=== PATIENT | female | born 1955 ===

== ENCOUNTER 2016-10-08 20:03 | Emergency (ER) | payer OTHER ==
[2016-10-08 20:46] VITALS: PULSE 62; RESP 20; O2SAT 100
[2016-10-08 21:41] VITALS: BP 136/86; TEMP 98
--- NOTE | 2016-10-08 21:43 | C.PDOC ---
History Of Present Illness 60 year old patient presents to the ED complaining of a productive cough and yellow phlegm for the past 2 days. Patient was seen at [facility] today , but did not have her cough evaluated since it was not bothering her at that time. Patient is homeless. Patient denies any fever, shortness of breath or chest pain. Time Seen by Provider: 10/08/16 21:02 Chief Complaint (Nursing): Cough, Cold, Congestion History Per: Patient History/Exam Limitations: no limitations Onset/Duration Of Symptoms: Days (2) Current Symptoms Are (Timing): Still Present Location Of Pain: Throat Sick Contacts (Context): None Associated Symptoms: Cough Severity: Mild Pain Scale Rating Of: 3 Recent travel outside of the [place]: No Past Medical History Reviewed: Historical Data, Nursing Documentation, Vital Signs Vital Signs: Last Vital Signs Temp 98 F 10/08/16 21:41 Pulse 62 10/08/16 21:41 Resp 20 10/08/16 21:41 BP 136/86 10/08/16 21:41 Pulse Ox 100 10/08/16 21:43 - Medical History PMH: HTN Surgical History: Appendectomy Family History: States: Unknown Family Hx - Social History Hx Tobacco Use: No Hx Alcohol Use: No Hx Substance Use: No - Immunization History Hx Tetanus Toxoid Vaccination: No Hx Influenza Vaccination: No Hx Pneumococcal Vaccination: No Review Of Systems Except As Marked, All Systems Reviewed And Found Negative. Constitutional: Negative for: Fever Cardiovascular: Negative for: Chest Pain Respiratory: Positive for: Cough. Negative for: Shortness of Breath Physical Exam - Physical Exam Appears: Non-toxic, No Acute Distress Skin: Warm, Dry Head: Atraumatic, Normacephalic Eye(s): bilateral: Normal Inspection, EOMI Ear(s): Bilateral: Normal Nose: Normal Oral Mucosa: Moist Throat: Normal Neck: Normal ROM, Supple Chest: Symmetrical Cardiovascular: Rhythm Regular Respiratory: Normal Breath Sounds, No Accessory Muscle Use, No Rales, No Rhonchi , No Wheezing Extremity: Normal ROM Neurological/Psych: Oriented x3 Gait: Steady ED Course And Treatment O2 Sat by Pulse Oximetry: 100 (room air) Pulse Ox Interpretation: Normal Progress Note: Patient is resting comfortably, sleeping in the ED, and is in no acute distress. Patient was instructed to follow up with physician/clinic for further evaluation. Disposition Counseled Patient/Family Regarding: Diagnosis, Need For Followup, Rx Given - Disposition Referrals: [facility] [Outside] Disposition: HOME/ ROUTINE Disposition Time: 21:42 Condition: STABLE Additional Instructions: Increase fluids Follow up in clinic Return to ER if worse Prescriptions: Benzonatate [Tessalon Perles] 100 mg PO TID #20 sgl Instructions: Upper Respiratory Infection (ED) - Clinical Impression Clinical Impression: Upper respiratory infection - PA / RN ADVANCED / Resident Statement MD/DO has reviewed & agrees with the documentation as recorded. - Scribe Statement The provider has reviewed the documentation as recorded by the Scribe Annmarie Maguire All medical record entries made by the Scribe were at my direction and personally dictated by me. I have reviewed the chart and agree that the record accurately reflects my personal performance of the history, physical exam, medical decision making, and the department course for this patient. I have also personally directed, reviewed, and agree with the discharge instructions and disposition.
== END 2016-10-08 22:19 | disposition home or self-care (01) ==
LOC: C.ER 20:03
DX: J06.9 Acute upper respiratory infection, unspecified (principal)

== ENCOUNTER 2016-10-12 15:52 | Observation (INO) | payer OTHER ==
[2016-10-12 17:35] LABS: BASO % 0.8 % (0.0-2.0); EOS # 0.1 K/uL (0.0-0.7); EOS % 1.3 % (0.0-4.0); HEMATOCRIT 39.4 % (34.0-47.0); LYMPH # 1.6 K/uL (1.0-4.3); MEAN CELL VOLUME 83.8 fL (81.0-99.0); MEAN CORPUSCULAR HEMOGLOBIN 26.9 pg (27.0-31.0); MEAN CORPUSCULAR HGB CONC 32.1 g/dL (33.0-37.0); MEAN PLATELET VOLUME 8.2 fL (7.2-11.7); MONO # 0.3 K/uL (0.0-0.8); MONO % 5.3 % (0.0-10.0); RED CELL DISTRIBUTION WIDTH 14.2 % (11.5-14.5); WHITE BLOOD COUNT 5.6 K/uL (4.8-10.8)
[2016-10-12 17:44] LABS: CHLORIDE 103 mmol/L (98-107); POTASSIUM 3.5 mmol/L (3.6-5.2); SODIUM 141 mmol/L (132-148)
[2016-10-12 17:46] LABS: ALB/GLOB RATIO 1.5 (1.0-2.1); ALKALINE PHOSPHATASE 60 U/L (38-126); AST/SGOT 32 U/L (14-36); BILIRUBIN,TOTAL 0.5 mg/dL (0.2-1.3); BLOOD UREA NITROGEN 15 mg/dL (7-17); CARBON DIOXIDE 26 mmol/L (22-30); GFR AFRICAN-AMERICAN > 60; TOTAL PROTEIN 7.1 g/dL (6.3-8.3)
[2016-10-12 17:47] LABS: ALT/SGPT 43 U/L (9-52); CALCIUM 8.7 mg/dl (8.6-10.4); GLUCOSE,RANDOM 86 mg/dL (65-105)
[2016-10-12 17:49] LABS: RBC URINE < 1 /hpf (0-3); URINE BILIRUBIN NEGATIVE (NEGATIVE); URINE COLOR Colorless (YELLOW); URINE GLUCOSE (UA) NORMAL (Normal); URINE KETONE NEGATIVE (NEGATIVE); URINE LEUKOCYTE ESTERASE NEG Leu/uL (Negative); URINE PROTEIN NEGATIVE (NEGATIVE); URINE UROBILINOGEN NORMAL mg/dL (0.2-1.0); WBC URINE < 1 /hpf (0-5)
[2016-10-12 17:58] LABS: URINE BLOOD NEGATIVE (NEGATIVE)
--- NOTE | 2016-10-12 18:03 | CT ---
PROCEDURE: CT HEAD WITHOUT CONTRAST. HISTORY: near syncope, headache COMPARISON: None available. TECHNIQUE: Axial computed tomography images were obtained through the head/brain without intravenous contrast. Radiation dose: Total exam DLP = 831.14 mGy-cm. This CT exam was performed using one or more of the following dose reduction techniques: Automated exposure control, adjustment of the mA and/or kV according to patient size, and/or use of iterative reconstruction technique. FINDINGS: HEMORRHAGE: No intracranial hemorrhage. BRAIN: No mass effect or edema. Cqzq-mq-pscdvmsp atrophy. VENTRICLES: Unremarkable. No hydrocephalus. CALVARIUM: Unremarkable. PARANASAL SINUSES: Unremarkable as visualized. No significant inflammatory changes. MASTOID AIR CELLS: Unremarkable as visualized. No inflammatory changes. OTHER FINDINGS: None. IMPRESSION: No evidence of acute intracranial hemorrhage intracranial collection mass effect or midline shift. Eozp-mi-wmxpflpj atrophy.
--- NOTE | 2016-10-12 18:24 | RAD ---
PROCEDURE: CHEST RADIOGRAPH, 1 VIEW. Portable study 17:37. HISTORY: SOB COMPARISON: None available. FINDINGS: LUNGS: Clear. PLEURA: No pneumothorax or pleural fluid seen. CARDIOVASCULAR: No radiographic findings to suggest acute or significant cardiovascular disease. OSSEOUS STRUCTURES: No significant abnormalities. VISUALIZED UPPER ABDOMEN: Normal. OTHER FINDINGS: None. IMPRESSION: No active disease.
--- NOTE | 2016-10-12 18:25 | C.PDOC ---
History Of Present Illness <Mihaela Chakraborty - Last Filed: 10/12/16 19:13> <Ivy Saravia - Last Filed: 10/12/16 19:29> 60-year-old female, PMHx includes Hypertension, presents to the emergency department with complaints of near-syncope. Patient states she had an episode of dizziness, that was associated with near-syncope while she was at work yesterday, states symptoms resolved, but today, she developed chest pressure, that was associated with dizziness, resulting in her coming to the ED for evaluation. Denies shortness of breath, nausea/vomiting, diarrhea, back pain, or any other associated symptoms. No other complaints at this time. (Mihaela Chakraborty) History Per: Patient History/Exam Limitations: no limitations <Mihaela Chakraborty - Last Filed: 10/12/16 19:13> <Ivy Saravia - Last Filed: 10/12/16 19:29> Time Seen by Provider: 10/12/16 16:57 Chief Complaint (Nursing): High Blood Pressure Past Medical History Reviewed: Historical Data, Nursing Documentation, Vital Signs - Medical History PMH: Anxiety, HTN Surgical History: Appendectomy Family History: States: Unknown Family Hx - Social History Hx Tobacco Use: No Hx Alcohol Use: No Hx Substance Use: No - Immunization History Hx Tetanus Toxoid Vaccination: No Hx Influenza Vaccination: No Hx Pneumococcal Vaccination: No <Mihaela Chakraborty - Last Filed: 10/12/16 19:13> Review Of Systems Except As Marked, All Systems Reviewed And Found Negative. Constitutional: Negative for: Fever, Chills Cardiovascular: Positive for: Chest Pain Respiratory: Negative for: Shortness of Breath Gastrointestinal: Negative for: Nausea, Vomiting Musculoskeletal: Negative for: Neck Pain, Back Pain Neurological: Positive for: Dizziness. Negative for: Weakness, Numbness <Mihaela Chakraborty - Last Filed: 10/12/16 19:13> Physical Exam - Physical Exam Appears: Non-toxic, No Acute Distress Skin: Warm, Dry, No Rash Head: Atraumatic, Normacephalic Eye(s): bilateral: Normal Inspection, PERRL, EOMI Nose: Normal Oral Mucosa: Moist Lips: Normal Appearing Neck: Normal ROM Cardiovascular: Rhythm Regular Respiratory: Normal Breath Sounds, No Accessory Muscle Use Extremity: Normal ROM Neurological/Psych: Oriented x3, Normal Speech <Mihaela Chakraborty - Last Filed: 10/12/16 19:13> ED Course And Treatment - Laboratory Results Result Diagrams: 10/12/16 17:29 10/12/16 17:29 Interpretation Of ECG: sinus rhythm @60. T wave abnormalirt in lateral leads O2 Sat by Pulse Oximetry: 98 - Radiology CXR: Viewed By Me, Read By Radiologist CXR Interpretation: Yes: No Acute Disease - CT Scan/US CT HEAD Other Rad Studies (CT/US): Read By Radiologist, Radiology Report Reviewed CT/US Interpretation: Accession No. : [id number]. Patient Name / ID : KEILA ODOM / [id number]. Exam Date : 10/12/2016 17:49:49 ( Approved ). Study Comment : Sex / Age : F / [id number]. Creator : Joann Granda. Dictator : Joann Granda. Warehouse Order Filler : [employer] Vice President : Joann Granda. Approver2 : Report Date : 10/12/2016 18:02:11. My Comment : . PROCEDURE: CT HEAD WITHOUT CONTRAST. HISTORY: near syncope, headache. COMPARISON: None available. TECHNIQUE: Axial computed tomography images were obtained through the head/brain without intravenous contrast. Radiation dose: Total exam DLP = 831.14 mGy-cm. This CT exam was performed using one or more of the following dose reduction techniques: Automated exposure control, adjustment of the mA and/ or kV according to patient size, and/or use of iterative reconstruction technique. FINDINGS: HEMORRHAGE: No intracranial hemorrhage. BRAIN: No mass effect or edema. Lkdy-de-zfynwjln atrophy. VENTRICLES: Unremarkable. No hydrocephalus. CALVARIUM: Unremarkable. PARANASAL SINUSES: Unremarkable as visualized. No significant inflammatory changes. MASTOID AIR CELLS: Unremarkable as visualized. No inflammatory changes. OTHER FINDINGS: None. IMPRESSION: No evidence of acute intracranial hemorrhage intracranial collection mass effect or midline shift. Kdrr-ck-abauilnt atrophy. <Mihaela Chakraborty - Last Filed: 10/12/16 19:13> - Laboratory Results Result Diagrams: 10/12/16 17:29 10/12/16 17:29 <Ivy Saravia - Last Filed: 10/12/16 19:29> Disposition - Disposition Disposition Time: 19:14 <Mihaela Chakraborty - Last Filed: 10/12/16 19:13> Discussed With DrSatish: Luis Maguire Comment: accepted the pt onhis service and took over the care at 7:28PM Doctor Will See Patient In The: Hospital Counseled Patient/Family Regarding: Studies Performed, Diagnosis <Ivy Saravia - Last Filed: 10/12/16 19:29> - Disposition Disposition: HOSPITALIZED Condition: FAIR - Clinical Impression Clinical Impression: Near syncope, Hypothyroidism, Hypertension - Scribe Statement The provider has reviewed the documentation as recorded by the Scribe <Mihaela Chakraborty - Last Filed: 10/12/16 19:13> <Ivy Sraavia - Last Filed: 10/12/16 19:29> - Scribe Statement Artie Peres All medical record entries made by the Scribe were at my direction and personally dictated by me. I have reviewed the chart and agree that the record accurately reflects my personal performance of the history, physical exam, medical decision making, and the department course for this patient. I have also personally directed, reviewed, and agree with the discharge instructions and disposition. (Mihaela Chakraborty) Physician Patient Turnover Patient Signed Over To: Ivy Saravia Handoff Comments: admission pending <Mihaela Chakraborty - Last Filed: 10/12/16 19:13> Decision To Admit <Mihaela Chakraborty - Last Filed: 10/12/16 19:13> - Pt Status Changed To: Hospital Disposition Of: Inpatient - Admit Certification Admit to Inpatient:: After my assessment, the patient will require hospitalization for at least two midnights. This is because of the severity of symptoms shown, intensity of services needed, and/or the medical risk in this patient being treated as an outpatient. - InPatient: Physician Admission Certification: I certify that this patient requires 2 or more midnights of care for the following reason:: After my assessment, the patient will require hospitalization for at least two midnights. This is because of the severity of symptoms shown, intensity of services needed, and/or the medical risk in this patient being treated as an outpatient. - . Bed Request Type: Telemetry Admitting Physician: Luis Maguire <Ivy Saravia - Last Filed: 10/12/16 19:29> - . Patient Diagnosis: Near syncope, Hypothyroidism, Hypertension
[2016-10-12] MEDS ORDERED: Potassium Chloride 20 mEq ER Tab PO STA (21:05)
--- NOTE | 2016-10-12 21:05 | CP.PCM.HP ---
History of Present Illness - History of Present Illness History of Present Illness: 60 years old female with past medical history of hypertension presented to the ED with complaint of near syncopal episode, chest pressure, dizziness. Patient had an episode of dizziness that associated with near syncopal while she was working yesterday. No shortness of breath, no nausea vomiting diarrhea. Present on Admission - Present on Admission Any Indicators Present on Admission: No Past Patient History - Infectious Disease Hx of Infectious Diseases: None - Past Social History Smoking Status: Never Smoked - CARDIAC Hx Hypertension: Yes - PSYCHIATRIC Hx Anxiety: Yes Hx Substance Use: No - SURGICAL HISTORY Hx Appendectomy: Yes - ANESTHESIA Hx Anesthesia: Yes Hx Anesthesia Reactions: No Hx Malignant Hyperthermia: No Meds Home Medications: Home Medication List Medication Instructions Recorded Confirmed Type Levothyroxine [Synthroid] 50 mcg PO DAILY@0630 #30 tab 10/16/16 Rx amLODIPine [Norvasc] 5 mg PO DAILY #30 tab 10/16/16 Rx Allergies/Adverse Reactions: Allergies Allergy/AdvReac Type Severity Reaction Status Date / Time codeine Allergy Verified 10/12/16 16:05 Results - Vital Signs Recent Vital Signs: Last Vital Signs Temp 98.2 F 10/12/16 20:10 Pulse 62 10/12/16 20:10 Resp 16 10/12/16 20:10 BP 139/97 H 10/12/16 20:10 Pulse Ox 99 10/12/16 20:10 - Labs Result Diagrams: 10/16/16 06:28 10/16/16 06:28 Assessment & Plan (1) Ankle sprain Status: Acute (2) Exposure to chemical irritant Status: Acute (3) Hypertension Status: Acute (4) Near syncope Status: Acute (5) Paronychia Status: Acute (6) Shoulder sprain Status: Acute (7) Upper respiratory infection Status: Acute (8) Diastolic CHF Status: Chronic (9) Hypothyroidism Status: Chronic - Assessment and Plan (Free Text) Plan: Labs and meds reviewed Cardiology consult Potassium supplement Continue aspirin
--- NOTE | 2016-10-13 07:34 | CP.PCM.CON ---
<Timbo Porter - Last Filed: 10/15/16 15:53> History of Present Illness - History of Present Illness History of Present Illness: Cardiology Consultation Note Dr. Tenorio CC: "I felt dizzy" HPI: This is a 60 year old female with PMH of HTN presents for cardiac evaluation of dizziness. She was admitted to the hospital on 10/12/2016 for complaints of dizziness, near syncope, and chest pressure. She reports similar episode of dizziness over the past 2 weeks with episodes lasting a few minutes. She describes the dizziness sensation as a "loss of balance". She denies any loss of consciousness. She states her symptoms get better with drinking water and is exacerbated by heat and her shoulder/neck pain. On admission her pain scale was 10/10, now it is 3/10. She reports that she was given HTN medication per [facility] and not long after started feeling dizzy. She also reports increased stressors in her life; over the past 15 years she has been dealing with a divorce, child custody, employment change, and lost her home in May 2016. She admits to recent URI for which she was seen at [facility] on . She denies any URI symptoms at this time, no cough, SOB, orthopnea, fever/ chills, chest pain, palpitations, N/V/D/C, dysuria. She admits to tingling/ numbness in her right hand and fingers, weakness, and fatigue. Previously, she had an EKG on 03/26/2016 which showed NSR, 63 bpm, normal physiologic axis, normal QRS interval, normal QTc, normal NV interval, non- specific ST and T wave abnormalities. Social: works at [employer], exercises daily via walking and yoga, denies lifetime tobacco and/or illicit drug use, social EtOH consumption. Drinks 1 cup of decaf coffee, recently switched to regular coffee. PMH: HTN, Right rotator cuff injury PSH: Appendectomy ~1985, Tooth extractions - unknown year Allergies: Codeine - dizziness, nausea, palpitations FH: Father - 89 y.o. Parkinson's, Mother - alive, denies, Brother and sister - denies Review of Systems - Constitutional Constitutional: Fatigue. absent: Chills, Fever - EENT Eyes: absent: Blurred Vision, Change in Vision Ears: Disequilibrium, Dizziness. absent: Decreased Hearing, Tinnitus Nose/Mouth/Throat: absent: Nose Pain, Facial Pain, Neck Pain - Cardiovascular Cardiovascular: Lightheadedness. absent: Chest Pain, Orthopnea, Palpitations, Syncope - Respiratory Respiratory: absent: Cough, Dyspnea, Dyspnea on Exertion - Gastrointestinal Gastrointestinal: absent: Abdominal Pain, Constipation, Diarrhea, Nausea, Vomiting - Genitourinary Genitourinary: absent: Change in Urinary Stream, Difficulty Urinating - Musculoskeletal Musculoskeletal: Neck Pain, Tingling. absent: Back Pain, Limited Range of Motion - Integumentary Integumentary: absent: Lesions, Rash, Wounds - Neurological Neurological: Disequilibrium, Dizziness, Tingling. absent: Memory Loss, Sensory Deficit, Syncope, Tremor, Vertigo, Weakness - Endocrine Endocrine: absent: Cold Intolorance, Heat Intolorance, Polydipsia, Polyphagia Meds Home Medications: Home Medication List Medication Instructions Recorded Confirmed Type Levothyroxine [Synthroid] 50 mcg PO DAILY@0630 #30 tab 10/16/16 Rx amLODIPine [Norvasc] 5 mg PO DAILY #30 tab 10/16/16 Rx Allergies/Adverse Reactions: Allergies Allergy/AdvReac Type Severity Reaction Status Date / Time codeine Allergy Verified 10/12/16 16:05 - Medications Medications: Current Medications Aspirin (Aspirin) 325 mg PO DAILY [facility] Last Admin: 10/15/16 10:07 Dose: 325 mg Clopidogrel Bisulfate (Plavix) 75 mg PO DAILY [facility] Last Admin: 10/15/16 10:09 Dose: 75 mg Enoxaparin Sodium (Lovenox) 40 mg SC DAILY [facility] Last Admin: 10/15/16 10:09 Dose: 40 mg Famotidine (Pepcid) 20 mg PO BID [facility] Last Admin: 10/15/16 10:07 Dose: 20 mg Levothyroxine Sodium (Synthroid) 50 mcg PO DAILY@0630 [facility] Physical Exam - Constitutional Appears: Well, No Acute Distress - Head Exam Head Exam: ATRAUMATIC, NORMAL INSPECTION, NORMOCEPHALIC - Eye Exam Eye Exam: EOMI, Normal appearance Pupil Exam: NORMAL ACCOMODATION - ENT Exam ENT Exam: Mucous Membranes Moist, Normal Exam - Neck Exam Neck exam: Positive for: Normal Inspection - Respiratory Exam Respiratory Exam: Clear to Auscultation Bilateral, NORMAL BREATHING PATTERN. absent: Rales, Rhonchi, Wheezes, Stridor - Cardiovascular Exam Cardiovascular Exam: REGULAR RHYTHM, RRR, +S1, +S2. absent: Diastolic murmur, Systolic Murmur - GI/Abdominal Exam GI & Abdominal Exam: Normal Bowel Sounds, Soft. absent: Distended, Firm, Guarding, Tenderness - Extremities Exam Extremities exam: Positive for: normal inspection. Negative for: calf tenderness, normal capillary refill, pedal pulses present - Neurological Exam Neurological exam: Alert, CN II-XII Intact, Oriented x3 - Psychiatric Exam Psychiatric exam: Normal Affect, Normal Mood - Skin Skin Exam: Dry, Intact, Normal Color, Warm Results - Vital Signs Recent Vital Signs: Last Vital Signs Temp 97.4 F L 10/14/16 23:10 Pulse 63 10/15/16 00:10 Resp 20 10/14/16 23:10 BP 134/91 H 10/14/16 23:10 Pulse Ox 99 10/14/16 23:10 - Labs Result Diagrams: 10/13/16 12:33 10/13/16 12:33 Assessment & Plan (1) Near syncope Assessment and Plan: Hypothyroidism- continue medical management cardiac stable at this point hemodynamically stable Troponins negative x 3 (<0.0120) 10/15/16 Echo- preliminary EF 73%- official report pending 10/12/16 EKG- sinus león (59 BPM), physiologic axis, normal intervals, anterolateral lead ST/T wave abnormality (consider ischemia) Case Discussed with Dr. Jona Porter PGY1 Status: Acute (2) Hypothyroidism Assessment and Plan: continue management as per medical team Status: Chronic - Date & Time Date: 10/15/16 Time: 16:00 <Radha Tenorio - Last Filed: 11/15/16 15:44> Review of Systems - Review of Systems Systems not reviewed;Unavailable: Acuity of Condition Past Patient History - Infectious Disease Hx of Infectious Diseases: None - Past Medical History & Family History Past Medical History?: Yes - Past Social History Smoking Status: Never Smoked - CARDIAC Hx Hypertension: Yes - MUSCULOSKELETAL/RHEUMATOLOGICAL Hx Falls: No - PSYCHIATRIC Hx Anxiety: Yes Hx Substance Use: No - SURGICAL HISTORY Hx Appendectomy: Yes - ANESTHESIA Hx Anesthesia: Yes Hx Anesthesia Reactions: No Hx Malignant Hyperthermia: No Meds - Medications Medications: Current Medications Aspirin (Aspirin) 325 mg PO DAILY [facility] Chlorthalidone (Hygroton) 25 mg PO DAILY [facility] Clopidogrel Bisulfate (Plavix) 75 mg PO DAILY [facility] Enoxaparin Sodium (Lovenox) 40 mg SC DAILY [facility] Famotidine (Pepcid) 20 mg PO BID [facility] Pneumococcal Polyvalent Vaccine (Pneumovax 23 Vaccine) 0.5 ml IM .ONCE ONE Stop: 10/15/16 10:01 Results - Vital Signs Recent Vital Signs: Last Vital Signs Temp 97.6 F 10/12/16 23:10 Pulse 57 L 10/13/16 00:00 Resp 20 10/12/16 23:10 BP 140/96 H 10/12/16 23:10 Pulse Ox 100 10/12/16 23:10 - Labs Result Diagrams: 10/16/16 06:28 10/16/16 06:28 Labs: Laboratory Results - last 24 hr 10/13/16 05:01 Total Creatine Kinase 75 CK-MB (Mass) 0.91 Troponin I, Quant < 0.0120 Assessment & Plan (1) Ankle sprain Assessment and Plan: Will eval echo follow up lab pending results of echo decided inpt vs out py stress. No cp at present enzymes follow up Status: Acute (2) Hypertension Status: Acute (3) Near syncope Status: Acute
--- NOTE | 2016-10-13 09:58 | CP.PCM.PN ---
Subjective - Date & Time of Evaluation Date of Evaluation: 10/13/16 Time of Evaluation: 11:40 - Subjective Subjective: clinically same Objective - Vital Signs/Intake and Output Vital Signs (last 24 hours): Temp Pulse Resp BP Pulse Ox 98.0 F 56 L 20 134/88 99 10/13/16 07:07 10/13/16 07:07 10/13/16 07:07 10/13/16 07:07 10/13/16 07:07 - Medications Medications: Current Medications Aspirin (Aspirin) 325 mg PO DAILY [facility] Chlorthalidone (Hygroton) 25 mg PO DAILY [facility] Clopidogrel Bisulfate (Plavix) 75 mg PO DAILY [facility] Enoxaparin Sodium (Lovenox) 40 mg SC DAILY [facility] Famotidine (Pepcid) 20 mg PO BID [facility] Pneumococcal Polyvalent Vaccine (Pneumovax 23 Vaccine) 0.5 ml IM .ONCE ONE Stop: 10/15/16 10:01 - Labs Labs: PT 11.2 SECONDS (9.7-12.2) 10/12/16 17:29 INR 1.0 10/12/16 17:29 APTT 31 SECONDS (21-34) 10/12/16 17:29 - Constitutional Appears: Well - Head Exam Head Exam: ATRAUMATIC, NORMAL INSPECTION, NORMOCEPHALIC - Eye Exam Eye Exam: EOMI, Normal appearance, PERRL Pupil Exam: NORMAL ACCOMODATION, PERRL - ENT Exam ENT Exam: Mucous Membranes Moist, Normal Exam - Neck Exam Neck Exam: Full ROM, Normal Inspection. absent: Lymphadenopathy - Respiratory Exam Respiratory Exam: Decreased Breath Sounds - Cardiovascular Exam Cardiovascular Exam: REGULAR RHYTHM, +S1, +S2 - GI/Abdominal Exam GI & Abdominal Exam: Soft, Diminished Bowel Sounds - Rectal Exam Rectal Exam: Deferred Assessment and Plan (1) Ankle sprain Status: Acute (2) Exposure to chemical irritant Status: Acute (3) Hypertension Status: Acute (4) Near syncope Status: Acute (5) Paronychia Status: Acute (6) Shoulder sprain Status: Acute (7) Upper respiratory infection Status: Acute (8) Diastolic CHF Status: Chronic (9) Hypothyroidism Status: Chronic - Assessment and Plan (Free Text) Plan: Continue aspirin Plavix Labs next a.m. Cardiology on board [facility]
[2016-10-13] MEDS: Enoxaparin 40 mg Syringe SC SCH (10:40)
[2016-10-13 12:38] LABS: BASO % 0.6 % (0.0-2.0); EOS # 0.1 K/uL (0.0-0.7); EOS % 1.8 % (0.0-4.0); HEMATOCRIT 40.2 % (34.0-47.0); LYMPH # 1.7 K/uL (1.0-4.3); LYMPH % 28.7 % (20.0-40.0); MEAN CELL VOLUME 84.5 fL (81.0-99.0); MEAN CORPUSCULAR HEMOGLOBIN 26.9 pg (27.0-31.0); MEAN CORPUSCULAR HGB CONC 31.9 g/dL (33.0-37.0); MEAN PLATELET VOLUME 8.1 fL (7.2-11.7); MONO # 0.3 K/uL (0.0-0.8); MONO % 4.6 % (0.0-10.0); RED CELL DISTRIBUTION WIDTH 14.3 % (11.5-14.5); WHITE BLOOD COUNT 5.8 K/uL (4.8-10.8)
[2016-10-13 12:46] LABS: CHLORIDE 103 mmol/L (98-107)
[2016-10-13 12:47] LABS: POTASSIUM 3.8 mmol/L (3.6-5.2); SODIUM 137 mmol/L (132-148)
[2016-10-13 12:49] LABS: BILIRUBIN,TOTAL 0.5 mg/dL (0.2-1.3); GFR AFRICAN-AMERICAN > 60
[2016-10-13 12:50] LABS: ALB/GLOB RATIO 1.4 (1.0-2.1); ALKALINE PHOSPHATASE 55 U/L (38-126); ALT/SGPT 37 U/L (9-52); AST/SGOT 30 U/L (14-36); BLOOD UREA NITROGEN 15 mg/dL (7-17); CALCIUM 8.3 mg/dl (8.6-10.4); CARBON DIOXIDE 23 mmol/L (22-30); GLUCOSE,RANDOM 87 mg/dL (65-105); TOTAL PROTEIN 6.6 g/dL (6.3-8.3)
--- NOTE | 2016-10-14 08:03 | CP.PCM.PN ---
Subjective - Date & Time of Evaluation Date of Evaluation: 10/14/16 Time of Evaluation: 07:45 - Subjective Subjective: Pt tolerating PO happier this am Objective - Vital Signs/Intake and Output Vital Signs (last 24 hours): Temp Pulse Resp BP Pulse Ox 97.9 F 61 20 143/93 H 98 10/13/16 23:10 10/14/16 00:10 10/13/16 23:10 10/13/16 23:10 10/13/16 23:10 - Medications Medications: Current Medications Aspirin (Aspirin) 325 mg PO DAILY [facility] Last Admin: 10/13/16 10:40 Dose: 325 mg Clopidogrel Bisulfate (Plavix) 75 mg PO DAILY [facility] Last Admin: 10/13/16 10:40 Dose: 75 mg Enoxaparin Sodium (Lovenox) 40 mg SC DAILY [facility] Last Admin: 10/13/16 10:40 Dose: 40 mg Famotidine (Pepcid) 20 mg PO BID [facility] Last Admin: 10/13/16 17:53 Dose: 20 mg Pneumococcal Polyvalent Vaccine (Pneumovax 23 Vaccine) 0.5 ml IM .ONCE ONE Stop: 10/15/16 10:01 - Labs Labs: 10/13/16 12:33 10/13/16 12:33 PT 11.2 SECONDS (9.7-12.2) 10/12/16 17:29 INR 1.0 10/12/16 17:29 APTT 31 SECONDS (21-34) 10/12/16 17:29 - Constitutional Appears: Well - Head Exam Head Exam: ATRAUMATIC - Eye Exam Eye Exam: Normal appearance - ENT Exam ENT Exam: Mucous Membranes Moist - Respiratory Exam Respiratory Exam: Clear to Ausculation Bilateral, NORMAL BREATHING PATTERN - Cardiovascular Exam Cardiovascular Exam: REGULAR RHYTHM, Murmur - GI/Abdominal Exam GI & Abdominal Exam: Soft, Normal Bowel Sounds - Exam External exam: NORMAL EXTERNAL EXAM - Extremities Exam Extremities Exam: Normal Inspection - Neurological Exam Neurological Exam: Alert, Awake - Psychiatric Exam Psychiatric exam: Normal Affect, Normal Mood - Skin Skin Exam: Normal Color Assessment and Plan (1) Ankle sprain Assessment & Plan: Pt tolerating po ambulating around unit no bradycardia stable Status: Acute (2) Hypertension Status: Acute (3) Near syncope Status: Acute
[2016-10-14] MEDS: Enoxaparin 40 mg Syringe SC SCH (10:07)
--- NOTE | 2016-10-14 19:29 | CP.PCM.PN ---
Subjective - Date & Time of Evaluation Date of Evaluation: 10/14/16 Time of Evaluation: 10:10 - Subjective Subjective: clinically same Objective - Vital Signs/Intake and Output Vital Signs (last 24 hours): Temp Pulse Resp BP Pulse Ox 98.4 F 49 L 18 135/87 99 10/14/16 15:00 10/14/16 15:52 10/14/16 15:00 10/14/16 15:00 10/14/16 15:00 - Medications Medications: Current Medications Aspirin (Aspirin) 325 mg PO DAILY [facility] Last Admin: 10/14/16 10:07 Dose: 325 mg Clopidogrel Bisulfate (Plavix) 75 mg PO DAILY [facility] Last Admin: 10/13/16 10:40 Dose: 75 mg Enoxaparin Sodium (Lovenox) 40 mg SC DAILY [facility] Last Admin: 10/14/16 10:07 Dose: 40 mg Famotidine (Pepcid) 20 mg PO BID [facility] Last Admin: 10/14/16 18:19 Dose: 20 mg Pneumococcal Polyvalent Vaccine (Pneumovax 23 Vaccine) 0.5 ml IM .ONCE ONE Stop: 10/15/16 10:01 - Labs Labs: 10/13/16 12:33 10/13/16 12:33 PT 11.2 SECONDS (9.7-12.2) 10/12/16 17:29 INR 1.0 10/12/16 17:29 APTT 31 SECONDS (21-34) 10/12/16 17:29 Assessment and Plan (1) Ankle sprain Status: Acute (2) Exposure to chemical irritant Status: Acute (3) Hypertension Status: Acute (4) Near syncope Status: Acute (5) Paronychia Status: Acute (6) Shoulder sprain Status: Acute (7) Upper respiratory infection Status: Acute (8) Diastolic CHF Status: Chronic (9) Hypothyroidism Status: Chronic - Assessment and Plan (Free Text) Plan: Patient feels better Labs noted Pneumovax Continue aspirin and Plavix Cardio on board
[2016-10-15 01:25] VITALS: RESP 20
[2016-10-15] MEDS ORDERED: Pneumococcal 23-Valent Vaccine IM ONE (10:00)
[2016-10-15] MEDS: Enoxaparin 40 mg Syringe SC SCH (10:09)
--- NOTE | 2016-10-15 14:57 | CP.PCM.PN ---
<Laura Carrizales - Last Filed: 10/15/16 14:46> Subjective - Date & Time of Evaluation Date of Evaluation: 10/15/16 Time of Evaluation: 09:50 - Subjective Subjective: PGY2 Medicine Note - Dr. Danay Maguire's service: Patient seen and examined at bedside this AM. Patient says her dizziness and chest pain have resolved. 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 She says they do not turn to AC on and sometimes it gets up to 85 degrees. She says this is when she feels dizzy and gets chest pain. Patient denies fever, chills , SOB. Objective - Vital Signs/Intake and Output Vital Signs (last 24 hours): Temp Pulse Resp BP Pulse Ox 97.4 F L 63 20 134/91 H 99 10/14/16 23:10 10/15/16 00:10 10/14/16 23:10 10/14/16 23:10 10/14/16 23:10 - Medications Medications: Current Medications Aspirin (Aspirin) 325 mg PO DAILY [facility] Last Admin: 10/15/16 10:07 Dose: 325 mg Clopidogrel Bisulfate (Plavix) 75 mg PO DAILY [facility] Last Admin: 10/15/16 10:09 Dose: 75 mg Enoxaparin Sodium (Lovenox) 40 mg SC DAILY [facility] Last Admin: 10/15/16 10:09 Dose: 40 mg Famotidine (Pepcid) 20 mg PO BID [facility] Last Admin: 10/15/16 10:07 Dose: 20 mg Levothyroxine Sodium (Synthroid) 50 mcg PO DAILY@0630 [facility] - Labs Labs: 10/13/16 12:33 10/13/16 12:33 PT 11.2 SECONDS (9.7-12.2) 10/12/16 17:29 INR 1.0 10/12/16 17:29 APTT 31 SECONDS (21-34) 10/12/16 17:29 - Constitutional Appears: Non-toxic, No Acute Distress - Head Exam Head Exam: NORMAL INSPECTION - Eye Exam Eye Exam: EOMI - ENT Exam ENT Exam: Mucous Membranes Moist - Respiratory Exam Respiratory Exam: Clear to Ausculation Bilateral, NORMAL BREATHING PATTERN. absent: Rales, Rhonchi, Wheezes - Cardiovascular Exam Cardiovascular Exam: REGULAR RHYTHM, +S1, +S2. absent: Gallop, Rubs, Murmur - GI/Abdominal Exam GI & Abdominal Exam: Soft, Normal Bowel Sounds. absent: Tenderness - Extremities Exam Extremities Exam: Normal Capillary Refill. absent: Pedal Edema - Neurological Exam Neurological Exam: Alert, Oriented x3 - Psychiatric Exam Psychiatric exam: Normal Affect, Normal Mood - Skin Skin Exam: Normal Color, Warm Assessment and Plan - Assessment and Plan (Free Text) Assessment: Dizziness F/U Carotid US F/U ECHO Head CT - mild to moderate atrophy (please see full report) F/U B12, vitamin D, folate Chest Pain EKG - 59 bpm, T wave inversions I, II, aVL, V2-V6 DELMAR negative x 3 Cardio consult - Dr. Tenorio - f/u recommendations Newly diagnosed hypothyroidism TSH 27.6 Started levothyroxine 50mg PO daily on 10/15/16 Needs to f/u in 6 weeks to recheck TSH Prophylaxis Pepcid 20mg PO BID Lovenox 40mg SC daily <Luis Maguire S - Last Filed: 01/15/17 19:48> Objective - Vital Signs/Intake and Output Vital Signs (last 24 hours): Temp Pulse Resp BP Pulse Ox 97.9 F 67 20 124/83 98 10/16/16 15:28 10/16/16 15:28 10/16/16 15:28 10/16/16 15:28 10/16/16 15:28 - Labs Labs: 10/16/16 06:28 10/16/16 06:28 PT 11.2 SECONDS (9.7-12.2) 10/12/16 17:29 INR 1.0 10/12/16 17:29 APTT 31 SECONDS (21-34) 10/12/16 17:29 Assessment and Plan (1) Ankle sprain Status: Acute (2) Exposure to chemical irritant Status: Acute (3) Hypertension Status: Acute (4) Near syncope Status: Acute (5) Paronychia Status: Acute (6) Shoulder sprain Status: Acute (7) Upper respiratory infection Status: Acute (8) Diastolic CHF Status: Chronic (9) Hypothyroidism Status: Chronic Attending/Attestation - Attestation I have personally seen and examined this patient.: Yes I have fully participated in the care of the patient.: Yes I have reviewed all pertinent clinical information, including history, physical exam and plan: Yes Notes (Text): Case seen and discussed with the staff and resident management as a
--- NOTE | 2016-10-15 16:04 | CP.PCM.PN ---
<Timbo Porter - Last Filed: 10/15/16 16:01> Subjective - Date & Time of Evaluation Date of Evaluation: 10/15/16 Time of Evaluation: 16:01 - Subjective Subjective: Cardiology Progress Note Dr. Tenorio Patient seen and examined at the bedside. No acute distress. No acute events overnight. Nursing staff reports no issues. Patient resting comfortable in bed. No acute cardiopulmonary complaints at this time. 12 point review of systems completed and returned negative for complaints. Patient had an echocardiogram today. Preliminary EF 73%, but the official report is still pending. Objective - Vital Signs/Intake and Output Vital Signs (last 24 hours): Temp Pulse Resp BP Pulse Ox 97.9 F 60 20 141/90 100 10/15/16 15:00 10/15/16 15:00 10/15/16 15:00 10/15/16 15:00 10/15/16 15:00 - Medications Medications: Current Medications Aspirin (Aspirin) 325 mg PO DAILY [facility] Last Admin: 10/15/16 10:07 Dose: 325 mg Clopidogrel Bisulfate (Plavix) 75 mg PO DAILY [facility] Last Admin: 10/15/16 10:09 Dose: 75 mg Enoxaparin Sodium (Lovenox) 40 mg SC DAILY [facility] Last Admin: 10/15/16 10:09 Dose: 40 mg Famotidine (Pepcid) 20 mg PO BID [facility] Last Admin: 10/15/16 10:07 Dose: 20 mg Levothyroxine Sodium (Synthroid) 50 mcg PO DAILY@0630 [facility] - Labs Labs: 10/13/16 12:33 10/13/16 12:33 PT 11.2 SECONDS (9.7-12.2) 10/12/16 17:29 INR 1.0 10/12/16 17:29 APTT 31 SECONDS (21-34) 10/12/16 17:29 - Additional Findings Additional findings: - Constitutional Appears: Well, No Acute Distress - Head Exam Head Exam: ATRAUMATIC, NORMAL INSPECTION, NORMOCEPHALIC - Eye Exam Eye Exam: EOMI, Normal appearance Pupil Exam: NORMAL ACCOMODATION - ENT Exam ENT Exam: Mucous Membranes Moist, Normal Exam - Neck Exam Neck exam: Positive for: Normal Inspection - Respiratory Exam Respiratory Exam: Clear to Auscultation Bilateral, NORMAL BREATHING PATTERN. absent: Rales, Rhonchi, Wheezes, Stridor - Cardiovascular Exam Cardiovascular Exam: REGULAR RHYTHM, RRR, +S1, +S2. absent: Diastolic murmur, Systolic Murmur - GI/Abdominal Exam GI & Abdominal Exam: Normal Bowel Sounds, Soft. absent: Distended, Firm, Guarding, Tenderness - Extremities Exam Extremities exam: Positive for: normal inspection. Negative for: calf tenderness, normal capillary refill, pedal pulses present - Neurological Exam Neurological exam: Alert, CN II-XII Intact, Oriented x3 - Psychiatric Exam Psychiatric exam: Normal Affect, Normal Mood - Skin Skin Exam: Dry, Intact, Normal Color, Warm Assessment and Plan (1) Near syncope Assessment & Plan: Hypothyroidism- continue medical management cardiac stable at this point hemodynamically stable Troponins negative x 3 (<0.0120) 10/15/16 Echo- preliminary EF 73%- official report pending 10/12/16 EKG- sinus león (59 BPM), physiologic axis, normal intervals, anterolateral lead ST/T wave abnormality (consider ischemia) Case Discussed with Dr. Jona Porter PGY1 Status: Acute (3) Hypothyroidism Assessment & Plan: continue management as per medical team Status: Chronic <Radha Tenorio - Last Filed: 11/15/16 15:38> Objective - Vital Signs/Intake and Output Vital Signs (last 24 hours): Temp Pulse Resp BP Pulse Ox 97.9 F 67 20 124/83 98 10/16/16 15:28 10/16/16 15:28 10/16/16 15:28 10/16/16 15:28 10/16/16 15:28 - Labs Labs: 10/16/16 06:28 10/16/16 06:28 PT 11.2 SECONDS (9.7-12.2) 10/12/16 17:29 INR 1.0 10/12/16 17:29 APTT 31 SECONDS (21-34) 10/12/16 17:29 Attending/Attestation - Attestation I have personally seen and examined this patient.: Yes I have fully participated in the care of the patient.: Yes I have reviewed all pertinent clinical information, including history, physical exam and plan: Yes Notes (Text): 11/15/16 15:37 ef via echo 73 percent outpt stress
--- NOTE | 2016-10-15 16:48 | CON ---
DATE: 10/15/2016 HISTORY OF PRESENT ILLNESS: This is a 60-year-old female with known history of hypertension and dysl ipidemia, admitted here with progressively worsening dizziness and lightheadedness with near syncopal episodes and supervening precordial tightness and pressure and has now been admitted for cardiac kayla luation and monitoring and has also been referred for endocrine evaluation because of an incidental f inding of abnormal thyroid function studies. PAST MEDICAL HISTORY: As mentioned above, history of hypertension and dyslipidemia. MEDICATIONS: Currently taking hygroton 25 mg once daily. FAMILY HISTORY: Positive for hypertension and heart disease. No known thyroid endocrinopathy. SOCIAL HISTORY: The patient has supportive family. No known substance use. Admits to tremendous em otional stress with personal and family issues. REVIEW OF SYSTEMS: Admits to generalized body weakness with easy fatigability and tiredness and subo ptimal energy level. Also, admits to progressive dizziness and lightheadedness, worse on the day of admission. She also admits to recurrent bouts of near syncopal episodes in the last few weeks prior to admission. No chest pains or palpitations, but admits to precordial tightness, especially on exer tion. Admits to persistent dyspepsia and variable oral intake with habitual constipation. No alterat ions of urinary patterns otherwise. Also, admits to polymyalgia and arthralgias, again worse in the last few weeks prior to admission. PHYSICAL EXAMINATION: GENERAL: An average built female in no apparent distress. VITAL SIGNS: Blood pressure of 150/90, pulse of 70 beats per minute and regular, temperature 98, res pirations 20. Height is 5 feet 10 inches, weight is 129 pounds. HEENT: Head normocephalic. Eyes anicteric with pink conjunctivae. Fundoscopy not possible at this time. Ears, nose and throat otherwise normal. NECK: Supple. Thyroid gland shows no thyromegaly, which is firm and nontender with no palpabl e thyroid nodules nor any cervical adenopathy. HEART: Adynamic precordium. S1, S2 is rapid and regular. LUNGS: Clear to auscultation. ABDOMEN: Flat, soft with positive bowel sounds. EXTREMITIES: No peripheral edema. Pulses are +2 bilaterally. LABORATORY DATA: Showed a BUN of 15, sodium 137, potassium 3.8, chloride 103, CO2 23, glucose 87, cr eatinine 0.5. Her TSH level is 27.60. Troponin is less than 0.012. ASSESSMENT: This is a 60-year-old female with an incidental finding of hypothyroidism confirmed both clinically and biochemically, most likely related to underlying autoimmune thyroiditis. She also h as an underlying small, diffuse, nontoxic goiter with no overt compressive symptoms nor any palpable thyroid nodules nor any cervical adenopathy at this time. She is hemodynamically stable at this time and is undergoing cardiac workup for precordial tightness and pressures with associated near syncopa l events. Plan of management are discussed with the patient and the staff. We will obtain a more com prehensive thyroid hormonal profile with a total T4 and free T4 and TSH to be repeated tomorrow manjinder pike. We will obtain thyroid antibodies, i.e., thyroid peroxidase and thyroglobulin antibodies, which will confirm the presence of thyroid autoimmunity. We will continue the levothyroxine starting at 50 mcg a.c. breakfast and we will titrate incrementally to optimize metabolic control. We will obtain a thyroid ultrasound to delineate the exact dimensions of her thyroid lobes at this time, and the orders have been placed in accordingly. We will follow. Trisha Arenas MD cc: [phone] TT: 10/15/2016 16:48:19 Confirmation # [id number] Dictation # [id number]
[2016-10-15 17:07] LABS: BASO % 0.7 % (0.0-2.0); EOS # 0.1 K/uL (0.0-0.7); EOS % 1.6 % (0.0-4.0); LYMPH # 1.9 K/uL (1.0-4.3); LYMPH % 36.2 % (20.0-40.0); MEAN CELL VOLUME 84.4 fL (81.0-99.0); MEAN PLATELET VOLUME 8.5 fL (7.2-11.7); MONO # 0.3 K/uL (0.0-0.8); MONO % 4.9 % (0.0-10.0); RED CELL DISTRIBUTION WIDTH 14.3 % (11.5-14.5); WHITE BLOOD COUNT 5.2 K/uL (4.8-10.8)
[2016-10-15 17:18] LABS: CHLORIDE 99 mmol/L (98-107); SODIUM 140 mmol/L (132-148)
[2016-10-15 17:19] LABS: POTASSIUM 3.5 mmol/L (3.6-5.2)
[2016-10-15 17:21] LABS: ALB/GLOB RATIO 1.5 (1.0-2.1); ALKALINE PHOSPHATASE 59 U/L (38-126); ALT/SGPT 43 U/L (9-52); AST/SGOT 34 U/L (14-36); BILIRUBIN,TOTAL 0.5 mg/dL (0.2-1.3); BLOOD UREA NITROGEN 13 mg/dL (7-17); CARBON DIOXIDE 30 mmol/L (22-30); GFR AFRICAN-AMERICAN > 60; GLUCOSE,RANDOM 103 mg/dL (65-105); TOTAL PROTEIN 7.1 g/dL (6.3-8.3)
[2016-10-15 17:22] LABS: CALCIUM 8.7 mg/dl (8.6-10.4)
--- NOTE | 2016-10-15 18:39 | CP.PCM.PN ---
Subjective - Date & Time of Evaluation Date of Evaluation: 10/15/16 Time of Evaluation: 11:20 - Subjective Subjective: clinically same Objective - Vital Signs/Intake and Output Vital Signs (last 24 hours): Temp Pulse Resp BP Pulse Ox 97.9 F 63 20 141/90 100 10/15/16 15:00 10/15/16 16:00 10/15/16 15:00 10/15/16 15:00 10/15/16 15:00 - Medications Medications: Current Medications Aspirin (Aspirin) 325 mg PO DAILY [facility] Last Admin: 10/15/16 10:07 Dose: 325 mg Clopidogrel Bisulfate (Plavix) 75 mg PO DAILY [facility] Last Admin: 10/15/16 10:09 Dose: 75 mg Enoxaparin Sodium (Lovenox) 40 mg SC DAILY [facility] Last Admin: 10/15/16 10:09 Dose: 40 mg Famotidine (Pepcid) 20 mg PO BID [facility] Last Admin: 10/15/16 17:42 Dose: 20 mg Levothyroxine Sodium (Synthroid) 50 mcg PO DAILY@0630 [facility] - Labs Labs: 10/15/16 16:49 10/15/16 16:49 PT 11.2 SECONDS (9.7-12.2) 10/12/16 17:29 INR 1.0 10/12/16 17:29 APTT 31 SECONDS (21-34) 10/12/16 17:29 - Constitutional Appears: Well - Head Exam Head Exam: ATRAUMATIC, NORMAL INSPECTION, NORMOCEPHALIC - Eye Exam Eye Exam: EOMI, Normal appearance, PERRL Pupil Exam: NORMAL ACCOMODATION, PERRL - ENT Exam ENT Exam: Mucous Membranes Moist, Normal Exam - Neck Exam Neck Exam: Full ROM, Normal Inspection. absent: Lymphadenopathy - Respiratory Exam Respiratory Exam: Decreased Breath Sounds - Cardiovascular Exam Cardiovascular Exam: REGULAR RHYTHM, +S1, +S2 - GI/Abdominal Exam GI & Abdominal Exam: Soft, Diminished Bowel Sounds - Rectal Exam Rectal Exam: Deferred Assessment and Plan (1) Ankle sprain Status: Acute (2) Exposure to chemical irritant Status: Acute (3) Hypertension Status: Acute (4) Near syncope Status: Acute (5) Paronychia Status: Acute (6) Shoulder sprain Status: Acute (7) Upper respiratory infection Status: Acute (8) Diastolic CHF Status: Chronic (9) Hypothyroidism Status: Chronic - Assessment and Plan (Free Text) Plan: Patient no better Continue same as ordered Cardio on board Heart healthy diet Endocrine consult
[2016-10-15] MEDS ORDERED: Potassium Chloride 20 mEq ER Tab PO ONE (20:00)
--- NOTE | 2016-10-16 05:39 | CARD ---
APPROVED REPORT EXAM: Two-dimensional and M-mode echocardiogram with Doppler and color Doppler. Other Information Quality : GoodRhythm : NSR INDICATION Chest Pain M-Mode DIMENSIONS RVDd1.32 (2.1-3.2cm)Left Atrium (MM)4.06 (2.5-4.0cm) IVSd1.15 (0.7-1.1cm)Aortic Root3.40 (2.2-3.7cm) LVDd4.96 (4.0-5.6cm)Aortic Cusp Exc.2.15 (1.5-2.0cm) PWd1.11 (0.7-1.1cm)FS (%) 42 % LVDs2.88 (2.0-3.8cm)LVEF (%)73 (>50%) Aortic Valve AoV Peak Rhzivetd512.5cm/Martita Peak GR.5mmHg Mitral Valve MV E Mygymyfb42.4cm/sMV A Klqksffp78.3cm/sE/A ratio0.6 TDI E/Lateral E'0.0E/Medial E'0.0 Tricuspid Valve TR Peak [id number]/sTR Peak [id number] LEFT VENTRICLE The left ventricle is normal size. There is normal left ventricular wall thickness. Left ventricle systolic function is normal. The Ejection Fraction is >70%. There is normal LV segmental wall motion. Tissue Doppler imaging reveals abnormal left ventricular diastolic dysfunction. RIGHT VENTRICLE The right ventricle is normal size. There is normal right ventricular wall thickness. The right ventricular systolic function is normal. ATRIA The left atrium size is normal. The right atrium size is normal. The interatrial septum is intact with no evidence for an atrial septal defect. AORTIC VALVE The aortic valve is normal in structure. No aortic regurgitation is present. There is no aortic valvular stenosis. There is no aortic valvular vegetation. MITRAL VALVE The mitral valve is normal in structure. There is no evidence of mitral valve prolapse. There is no mitral valve stenosis. There is no mitral valve regurgitation noted. TRICUSPID VALVE The tricuspid valve is normal in structure. There is trace to mild tricuspid regurgitation. Right ventricular systolic pressure is estimated at 30-40 mmHg. There is mild pulmonary hypertension. PULMONIC VALVE The pulmonic valve is not well visualized. There is mild pulmonic valvular regurgitation. GREAT VESSELS The aortic root is normal in size. PERICARDIAL EFFUSION There is no significant pericardial effusion. <Conclusion> Left ventricle systolic function is normal. The Ejection Fraction is >70%. Diastolic dysfunction. No aortic regurgitation is present. There is no mitral valve regurgitation noted. There is trace to mild tricuspid regurgitation. There is mild pulmonary hypertension. There is mild pulmonic valvular regurgitation.
[2016-10-16] MEDS ORDERED: Levothyroxine 50 MCG TAB PO SCH (06:30)
[2016-10-16 06:56] LABS: CHLORIDE 102 mmol/L (98-107)
[2016-10-16 06:57] LABS: POTASSIUM 3.9 mmol/L (3.6-5.2); SODIUM 138 mmol/L (132-148)
[2016-10-16 06:59] LABS: ALB/GLOB RATIO 1.4 (1.0-2.1); AST/SGOT 35 U/L (14-36); BILIRUBIN,TOTAL 0.5 mg/dL (0.2-1.3); BLOOD UREA NITROGEN 15 mg/dL (7-17); CARBON DIOXIDE 28 mmol/L (22-30); GFR AFRICAN-AMERICAN > 60; TOTAL PROTEIN 6.4 g/dL (6.3-8.3)
[2016-10-16 07:00] LABS: ALKALINE PHOSPHATASE 58 U/L (38-126); ALT/SGPT 42 U/L (9-52); GLUCOSE,RANDOM 82 mg/dL (65-105)
[2016-10-16 07:08] LABS: T4 3.97 ug/dL (5.5-11.0)
[2016-10-16 07:30] LABS: BASO % 0.4 % (0.0-2.0); EOS # 0.1 K/uL (0.0-0.7); EOS % 1.7 % (0.0-4.0); HEMATOCRIT 40.6 % (34.0-47.0); LYMPH # 1.8 K/uL (1.0-4.3); LYMPH % 35.1 % (20.0-40.0); MEAN CELL VOLUME 84.1 fL (81.0-99.0); MEAN CORPUSCULAR HEMOGLOBIN 27.5 pg (27.0-31.0); MEAN CORPUSCULAR HGB CONC 32.7 g/dL (33.0-37.0); MEAN PLATELET VOLUME 8.3 fL (7.2-11.7); MONO # 0.3 K/uL (0.0-0.8); MONO % 6.1 % (0.0-10.0); RED CELL DISTRIBUTION WIDTH 14.4 % (11.5-14.5)
[2016-10-16] MEDS: Enoxaparin 40 mg Syringe SC SCH (09:53)
--- NOTE | 2016-10-16 10:20 | VASCLAB ---
PROCEDURE: HISTORY: dizziness COMPARISON: None available. TECHNIQUE: Grayscale and duplex Doppler evaluation of the cervical carotid and vertebral arteries were performed. The common carotid, carotid bifurcations and cervical Internal Carotid Artery (ICA) and proximal External Carotid Artery (ECA) were evaluated. The vertebral arteries were evaluated for gross patency and flow direction. Report prepared by Dwight Drummond, BS, RVT FINDINGS: RIGHT CAROTID ARTERIES: 1. Common Carotid Artery: No significant focal plaque formation of the right common carotid artery. Maximum Peak Systolic velocity: 41 cm/sec: End-diastolic velocity 14 cm/sec. 2. Carotid Bifurcation: Homogeneous plaque formation. Maximum Peak Systolic velocity: 36 cm/sec: End-diastolic velocity 12 cm/sec. 3. Internal Carotid Artery: Minimal plaque formation of the right proximal ICA which does not result in hemodynamically significant stenosis. Plaque description: Homogeneous 3.1. Proximal Segment: Peak systolic velocity 59 cm/sec: End-diastolic velocity 28 cm/sec - % stenosis 0-15% 3.2. Middle Segment: Peak systolic velocity 47 cm/sec: End-diastolic velocity 22 cm/sec - % stenosis 0-15% 3.3. Distal Segment: Peak systolic velocity 59 cm/sec: End-diastolic velocity 26 cm/sec - % stenosis 0-15% 4. External Carotid Artery: No significant focal plaque formation. Peak systolic velocity 56 cm/sec 5. ICA/CCA Ratio: 1.4 LEFT CAROTID ARTERIES: 1. Common Carotid Artery: No significant focal plaque formation of the left common carotid artery. Maximum Peak Systolic velocity: 44 cm/sec: End-diastolic velocity 15 cm/sec. 2. Carotid Bifurcation: plaque formation. Maximum Peak Systolic velocity: 44 cm/sec: End-diastolic velocity 17 cm/sec. 3. Internal Carotid Artery: Plaque description: 3.1. Proximal Segment: Peak systolic velocity 72 cm/sec: End-diastolic velocity 32 cm/sec - % stenosis 0-15% 3.2. Middle Segment: Peak systolic velocity 53 cm/sec: End-diastolic velocity 21 cm/sec - % stenosis 0-15% 3.3. Distal Segment: Peak systolic velocity 63 cm/sec: End-diastolic velocity 24 cm/sec - % stenosis 0-15% 4. External Carotid Artery: No significant focal plaque formation. Peak systolic velocity 49 cm/sec 5. ICA/CCA Ratio: 1.6 VERTEBRAL ARTERIES: 1. Right Vertebral Artery: The right vertebral artery flow direction is antegrade. 2. Left Vertebral Artery: The left vertebral artery flow direction is antegrade. OTHER FINDINGS: 1. Right Brachial Blood pressure: 156 mmHg. 2. Left Brachial Blood pressure: 150 mmHg. IMPRESSION: RIGHT: Duplex scan does not suggest hemodynamically significant stenosis of the right extracranial carotid arteries. LEFT: Duplex scan does not suggest hemodynamically significant stenosis of the left extracranial carotid arteries.
--- NOTE | 2016-10-16 10:37 | CP.PCM.PN ---
<Laura Carrizales - Last Filed: 10/16/16 10:30> Subjective - Date & Time of Evaluation Date of Evaluation: 10/16/16 Time of Evaluation: 10:00 - Subjective Subjective: PGY2 Medicine Note - Dr. Danay Maguire's service: Patient seen and examined at bedside this AM. Patient says her dizziness and chest pain have resolved. Patient denies fever, chills, SOB. Objective - Vital Signs/Intake and Output Vital Signs (last 24 hours): Temp Pulse Resp BP Pulse Ox 97.3 F L 53 L 20 141/93 H 100 10/16/16 07:56 10/16/16 07:56 10/16/16 07:56 10/16/16 07:56 10/16/16 07:56 Intake and Output: 10/16/16 10/16/16 06:59 18:59 Intake Total 10 Balance 10 - Medications Medications: Current Medications Amlodipine Besylate (Norvasc) 5 mg PO DAILY [facility] Last Admin: 10/16/16 09:52 Dose: 5 mg Aspirin (Aspirin) 325 mg PO DAILY [facility] Last Admin: 10/16/16 09:52 Dose: 325 mg Clopidogrel Bisulfate (Plavix) 75 mg PO DAILY [facility] Last Admin: 10/16/16 09:53 Dose: 75 mg Enoxaparin Sodium (Lovenox) 40 mg SC DAILY [facility] Last Admin: 10/16/16 09:53 Dose: 40 mg Famotidine (Pepcid) 20 mg PO BID [facility] Last Admin: 10/16/16 09:53 Dose: 20 mg Levothyroxine Sodium (Synthroid) 50 mcg PO DAILY@0630 [facility] Last Admin: 10/16/16 06:16 Dose: 50 mcg - Labs Labs: 10/16/16 06:28 10/16/16 06:28 PT 11.2 SECONDS (9.7-12.2) 10/12/16 17:29 INR 1.0 10/12/16 17:29 APTT 31 SECONDS (21-34) 10/12/16 17:29 - Constitutional Appears: Non-toxic, No Acute Distress - Head Exam Head Exam: NORMAL INSPECTION - Eye Exam Eye Exam: EOMI - ENT Exam ENT Exam: Mucous Membranes Moist - Respiratory Exam Respiratory Exam: Clear to Ausculation Bilateral, NORMAL BREATHING PATTERN. absent: Rhonchi, Wheezes - Cardiovascular Exam Cardiovascular Exam: REGULAR RHYTHM, +S1, +S2 - GI/Abdominal Exam GI & Abdominal Exam: Soft, Normal Bowel Sounds. absent: Tenderness - Extremities Exam Extremities Exam: Normal Capillary Refill. absent: Pedal Edema - Neurological Exam Neurological Exam: Alert, Oriented x3 - Psychiatric Exam Psychiatric exam: Normal Affect, Normal Mood - Skin Skin Exam: Normal Color, Warm Assessment and Plan - Assessment and Plan (Free Text) Assessment: Dizziness Carotid US normal ECHO normal EF >70 percent, diastolic dysfunction, trace tricuspid regurg, mild pulm HTN, mild pulm valve regurgitation (please see full report) Head CT - mild to moderate atrophy (please see full report) Likely secondary to low TSH and/or elevated temperatures at work Chest Pain EKG - 59 bpm, T wave inversions I, II, aVL, V2-V6 DELMAR negative x 3 Cardio consult - Dr. Tenorio - f/u recommendations Newly diagnosed hypothyroidism Endo consult - Dr. Arenas - help appreciated TSH 27.6 Started levothyroxine 50mg PO daily on 10/15/16 Needs to f/u in 6 weeks to recheck TSH F/U thyroid US results and TPO and thyroglobulin Abs outpatient HTN Continue home med of chlorthalidone 25mg PO daily Prophylaxis Pepcid 20mg PO BID Lovenox 40mg SC daily <Luis Maguire S - Last Filed: 01/15/17 19:49> Objective - Vital Signs/Intake and Output Vital Signs (last 24 hours): Temp Pulse Resp BP Pulse Ox 97.9 F 67 20 124/83 98 10/16/16 15:28 10/16/16 15:28 10/16/16 15:28 10/16/16 15:28 10/16/16 15:28 - Labs Labs: 10/16/16 06:28 10/16/16 06:28 PT 11.2 SECONDS (9.7-12.2) 10/12/16 17:29 INR 1.0 10/12/16 17:29 APTT 31 SECONDS (21-34) 10/12/16 17:29 Assessment and Plan (1) Ankle sprain Status: Acute (2) Exposure to chemical irritant Status: Acute (3) Hypertension Status: Acute (4) Near syncope Status: Acute (5) Paronychia Status: Acute (6) Shoulder sprain Status: Acute (7) Upper respiratory infection Status: Acute (8) Diastolic CHF Status: Chronic (9) Hypothyroidism Status: Chronic Attending/Attestation - Attestation I have personally seen and examined this patient.: Yes I have fully participated in the care of the patient.: Yes I have reviewed all pertinent clinical information, including history, physical exam and plan: Yes Notes (Text): Case seen and discussed with the staff and resident chest pain and dizziness resolved Management is agreed
--- NOTE | 2016-10-16 14:10 | CP.PCM.PN ---
<Timbo Porter - Last Filed: 10/16/16 18:40> Subjective - Date & Time of Evaluation Date of Evaluation: 10/16/16 Time of Evaluation: 14:07 - Subjective Subjective: Cardiology Progress Note Dr. Tenorio Patient seen and examined at the bedside. No acute distress. No acute events overnight. Nursing staff reports no issues. Patient resting comfortable in bed. No acute cardiopulmonary complaints at this time. 12 point review of systems completed and returned negative for complaints. Objective - Vital Signs/Intake and Output Vital Signs (last 24 hours): Temp Pulse Resp BP Pulse Ox 97.3 F L 61 20 152/97 H 100 10/16/16 07:56 10/16/16 11:41 10/16/16 07:56 10/16/16 11:41 10/16/16 07:56 Intake and Output: 10/16/16 10/16/16 06:59 18:59 Intake Total 10 Balance 10 - Medications Medications: Current Medications Amlodipine Besylate (Norvasc) 5 mg PO DAILY [facility] Last Admin: 10/16/16 09:52 Dose: 5 mg Aspirin (Aspirin) 325 mg PO DAILY [facility] Last Admin: 10/16/16 09:52 Dose: 325 mg Clopidogrel Bisulfate (Plavix) 75 mg PO DAILY [facility] Last Admin: 10/16/16 09:53 Dose: 75 mg Enoxaparin Sodium (Lovenox) 40 mg SC DAILY [facility] Last Admin: 10/16/16 09:53 Dose: 40 mg Famotidine (Pepcid) 20 mg PO BID [facility] Last Admin: 10/16/16 09:53 Dose: 20 mg Levothyroxine Sodium (Synthroid) 50 mcg PO DAILY@0630 [facility] Last Admin: 10/16/16 06:16 Dose: 50 mcg - Labs Labs: 10/16/16 06:28 10/16/16 06:28 PT 11.2 SECONDS (9.7-12.2) 10/12/16 17:29 INR 1.0 10/12/16 17:29 APTT 31 SECONDS (21-34) 10/12/16 17:29 - Additional Findings Additional findings: - Constitutional Appears: Well, No Acute Distress - Head Exam Head Exam: ATRAUMATIC, NORMAL INSPECTION, NORMOCEPHALIC - Eye Exam Eye Exam: EOMI, Normal appearance Pupil Exam: NORMAL ACCOMODATION - ENT Exam ENT Exam: Mucous Membranes Moist, Normal Exam - Neck Exam Neck exam: Positive for: Normal Inspection - Respiratory Exam Respiratory Exam: Clear to Auscultation Bilateral, NORMAL BREATHING PATTERN. absent: Rales, Rhonchi, Wheezes, Stridor - Cardiovascular Exam Cardiovascular Exam: REGULAR RHYTHM, RRR, +S1, +S2. absent: Diastolic murmur, Systolic Murmur - GI/Abdominal Exam GI & Abdominal Exam: Normal Bowel Sounds, Soft. absent: Distended, Firm, Guarding, Tenderness - Extremities Exam Extremities exam: Positive for: normal inspection. Negative for: calf tenderness, normal capillary refill, pedal pulses present - Neurological Exam Neurological exam: Alert, CN II-XII Intact, Oriented x3 - Psychiatric Exam Psychiatric exam: Normal Affect, Normal Mood - Skin Skin Exam: Dry, Intact, Normal Color, Warm Assessment and Plan (1) Near syncope Assessment & Plan: Hypothyroidism- continue medical management - TSH 27.60 > 22.90 cardiac stable at this point hemodynamically stable Orthostatic Vital Signs Negative - Supine- 135/84 - Sitting- 142/87 - Standing- 130/90 Troponins negative x 3 (<0.0120) 10/15/16 Echo- EF 73% with diastolic dysfunction, mild pulm hypertension 10/12/16 EKG- sinus león (59 BPM), physiologic axis, normal intervals, anterolateral lead ST/T wave abnormality (consider ischemia) Case Discussed with Dr. Jona Porter PGY1 Status: Acute (2) Diastolic CHF Status: Chronic (3) Hypothyroidism Assessment & Plan: continue management as per medical team Status: Chronic <Radha Tenorio - Last Filed: 11/15/16 15:38> Objective - Vital Signs/Intake and Output Vital Signs (last 24 hours): Temp Pulse Resp BP Pulse Ox 97.9 F 67 20 124/83 98 10/16/16 15:28 10/16/16 15:28 10/16/16 15:28 10/16/16 15:28 10/16/16 15:28 - Labs Labs: 10/16/16 06:28 10/16/16 06:28 PT 11.2 SECONDS (9.7-12.2) 10/12/16 17:29 INR 1.0 10/12/16 17:29 APTT 31 SECONDS (21-34) 10/12/16 17:29 Attending/Attestation - Attestation I have personally seen and examined this patient.: Yes I have fully participated in the care of the patient.: Yes I have reviewed all pertinent clinical information, including history, physical exam and plan: Yes Notes (Text): 11/15/16 15:38 pt to follow up as outpt. No cp stable
[2016-10-16 15:29] VITALS: BP 124/83; PULSE 67; TEMP 97.9; O2SAT 98
--- NOTE | 2016-10-16 16:24 | PN ---
DATE: 10/16/2016 ROOM: 651. SUBJECTIVE: This is a 60-year-old female with constitutional symptoms and generalized body weakness and evaluated to also have moderate hypothyroidism and is now being followed closely for metabolic david dias. Her latest chemistries include a BUN of 15, sodium 138, potassium 3.9, chloride 102, CO2 o f 28, glucose 82 and creatinine 0.6. Her latest thyroid study showed a T4 of 3.97, which is quite lo w, and a TSH of 22.90 indicative of overt hypothyroidism, both clinically, historically biochemically as noted thereof. This is most likely related to underlying autoimmune thyroiditis as noted. She w ent today for a thyroid ultrasound procedure and the results are pending at this time. So for now, ivy estrella will modify once again and titrate her levothyroxine to a higher dose of 100 mcg once daily before breakfast to start tomorrow morning as ordered. We will titrate incrementally as indicated to optimi ze metabolic control. We will await the thyroid antibodies, which will confirm and/or negate the pre sence of underlying thyroid autoimmunity. We will follow. Trisha Arenas MD cc: [phone] TT: 10/16/2016 16:24:09 Confirmation # [id number] Dictation # [id number] xi
--- NOTE | 2016-10-16 16:52 | CP.PCM.PN ---
Subjective - Date & Time of Evaluation Date of Evaluation: 10/16/16 Time of Evaluation: 12:40 - Subjective Subjective: clinically same Objective - Vital Signs/Intake and Output Vital Signs (last 24 hours): Temp Pulse Resp BP Pulse Ox 97.9 F 67 20 124/83 98 10/16/16 15:28 10/16/16 15:28 10/16/16 15:28 10/16/16 15:28 10/16/16 15:28 Intake and Output: 10/16/16 10/16/16 06:59 18:59 Intake Total 10 460 Balance 10 460 - Medications Medications: Current Medications Amlodipine Besylate (Norvasc) 5 mg PO DAILY [facility] Last Admin: 10/16/16 09:52 Dose: 5 mg Aspirin (Aspirin) 325 mg PO DAILY [facility] Last Admin: 10/16/16 09:52 Dose: 325 mg Clopidogrel Bisulfate (Plavix) 75 mg PO DAILY [facility] Last Admin: 10/16/16 09:53 Dose: 75 mg Enoxaparin Sodium (Lovenox) 40 mg SC DAILY [facility] Last Admin: 10/16/16 09:53 Dose: 40 mg Famotidine (Pepcid) 20 mg PO BID [facility] Last Admin: 10/16/16 09:53 Dose: 20 mg Levothyroxine Sodium (Synthroid) 100 mcg PO DAILY@0630 [facility] - Labs Labs: 10/16/16 06:28 10/16/16 06:28 PT 11.2 SECONDS (9.7-12.2) 10/12/16 17:29 INR 1.0 10/12/16 17:29 APTT 31 SECONDS (21-34) 10/12/16 17:29 - Constitutional Appears: Well - Head Exam Head Exam: ATRAUMATIC, NORMAL INSPECTION, NORMOCEPHALIC - Eye Exam Eye Exam: EOMI, Normal appearance, PERRL Pupil Exam: NORMAL ACCOMODATION, PERRL - ENT Exam ENT Exam: Mucous Membranes Moist, Normal Exam - Neck Exam Neck Exam: Full ROM, Normal Inspection. absent: Lymphadenopathy - Respiratory Exam Respiratory Exam: Decreased Breath Sounds - Cardiovascular Exam Cardiovascular Exam: REGULAR RHYTHM, +S1, +S2 - GI/Abdominal Exam GI & Abdominal Exam: Soft, Diminished Bowel Sounds - Rectal Exam Rectal Exam: Deferred Assessment and Plan (1) Ankle sprain Status: Acute (2) Exposure to chemical irritant Status: Acute (3) Hypertension Status: Acute (4) Near syncope Status: Acute (5) Paronychia Status: Acute (6) Shoulder sprain Status: Acute (7) Upper respiratory infection Status: Acute (8) Diastolic CHF Status: Chronic (9) Hypothyroidism Status: Chronic - Assessment and Plan (Free Text) Plan: Patient no comfortable Discharge to home today Continue home medications Levothyroxine Norvasc Follow-up in 1 week Thyroid function checked after 1 month
--- NOTE | 2016-10-16 17:17 | US ---
HISTORY: Diffuse Goiter/Hypothyroidism TECHNIQUE: Sonographic evaluation of the thyroid gland. COMPARISON: None FINDINGS: RIGHT LOBE: Measures 4.8 x 2.0 x 2.0 cm. Normal echotexture and flow. There is diffuse nodularity throughout the right lobe LEFT LOBE: Measures 4.3 x 1.9 x 1.9 cm. Normal echotexture and flow. There is diffuse nodularity throughout the left ISTHMUS: Measures 0.24 cm. Normal echotexture and flow. Nodules: None OTHER FINDINGS: None . IMPRESSION: Findings consistent with a diffuse multinodular goiter.
--- NOTE | 2016-10-16 17:32 | PCM.HF ---
Heart Failure Core Measure - Heart Failure Ejection Fraction: 40 % or Greater (lvef 73%) SHEILA Inhibitor Prescribed: No Contraindication/Reason for not providing: not rx by md Beta-Eliot Prescribed: None Contraindication/Reason for not providing: low hr Angiotensin II Receptor Eliot Prescribed: No Contraindication/Reason for not providing: not rx by md AnticoagulationTherapy for Atrial Fibrillation/Atrialflutter: No Contraindication/Reason for not providing: no afib Aldosterone Antagonist Prescribed: No Contraindication/Reason for not providing: lvef 40% Hydralazine Nitrate Prescribed: No Contraindication/Reason for not providing: lvef 40% Implantable Cardioverter Defibrillator Therapy: No Contraindication/Reason for not providing: lvef 40% Cardiac Resynchronization Therapy Prescribed: No Contraindication/Reason for not providing: lvef 40% - Follow up Will be discharged to: Home Follow Up Date (must be within 7 days from discharge): 10/19/16 Follow Up Time: 09:00
[2016-10-16] MEDS ORDERED: Potassium Chloride 20 mEq ER Tab PO ONE (20:00)
[2016-10-17] MEDS ORDERED: Levothyroxine 100 MCG TAB PO SCH (06:30)
--- NOTE | 2016-10-17 08:57 | CARD ---
APPROVED REPORT EKG Measurement Heart [id number] NH 138P9 [id number] <Conclusion> Poor data quality, interpretation may be adversely affected Sinus bradycardia ST & T wave abnormality, consider anterolateral ischemia Abnormal ECG
== END 2016-10-16 16:10 | disposition home or self-care (01) ==
LOC: C.ER 15:52 → INTOOBSV 19:26 → C.9E 19:26 → C.6T 20:02
PROVIDERS: ADMIT Internal Medicine Nephrology; ATTEND Internal Medicine Nephrology
DX: R55 Syncope and collapse (principal); I50.32 Chronic diastolic (congestive) heart failure; I11.0 Hypertensive heart disease with heart failure; F41.9 Anxiety disorder, unspecified; E03.9 Hypothyroidism, unspecified; E78.5 Hyperlipidemia, unspecified; R07.9 Chest pain, unspecified; E06.3 Autoimmune thyroiditis
CPT/HCPCS: 36415; 70450; 71010; 76536; 80053; 81001; 82550; 82553; 82948; 84436; 84443; 84484; 85025; 85610; 85730; 86376; 86800; 93005; 93306; 93880; 99285; G0378; J1650

== ENCOUNTER 2018-08-25 22:42 | Emergency (ER) | payer SELFPAY ==
[2018-08-25] MEDS ORDERED: Aspirin 325 mg EC Tablets PO STA (23:40)
--- NOTE | 2018-08-25 23:40 | C.PDOC ---
History Of Present Illness Patient presents for evaluation of chest pain and elevated blood pressure, states she feels very stressed, and recently moved into a new apartment which she has been cleaning with a lot of chlorox without proper ventilation. She felt better while at work but then developed more chest discomfort. Patient also reports a dull aching headache. Denies vision changes, slurred speech, or weakness. Time Seen by Provider: 08/25/18 23:40 Chief Complaint (Nursing): Chest Pain History Per: Patient History/Exam Limitations: no limitations Onset/Duration Of Symptoms: Hrs Current Symptoms Are (Timing): Still Present Severity: Moderate Pain Scale Rating Of: 4 Associated Symptoms: Other (Headache) Modifying Factors: None Exacerbating Factors: None Alleviating Factors: None Recent travel outside of the [place]: No Past Medical History Reviewed: Historical Data, Nursing Documentation, Vital Signs Vital Signs: Last Vital Signs Temp 97.4 F L 08/25/18 22:50 Pulse 72 08/25/18 22:50 Resp 22 08/25/18 22:50 BP 175/98 H 08/25/18 22:50 Pulse Ox 100 08/25/18 22:50 - Medical History PMH: Anxiety, HTN Surgical History: Appendectomy Family History: States: No Known Family Hx - Social History Hx Tobacco Use: No Hx Alcohol Use: No Hx Substance Use: No - Immunization History Hx Tetanus Toxoid Vaccination: No Hx Influenza Vaccination: No Hx Pneumococcal Vaccination: No Review Of Systems Constitutional: Negative for: Fever, Chills Eyes: Negative for: Vision Change Cardiovascular: Positive for: Chest Pain Respiratory: Negative for: Cough, Shortness of Breath Gastrointestinal: Negative for: Nausea, Vomiting Neurological: Positive for: Headache. Negative for: Weakness, Change in Speech Physical Exam - Physical Exam Appears: Non-toxic Skin: Warm, Dry Head: Normacephalic Eye(s): bilateral: Normal Inspection, PERRL, EOMI Oral Mucosa: Moist Neck: Trachea Midline, Supple Chest: Symmetrical, No Tenderness Cardiovascular: Rhythm Regular Respiratory: No Rales, No Rhonchi, No Wheezing Gastrointestinal/Abdominal: Soft, No Tenderness Neurological/Psych: Oriented x3, Other (No focal deficit) ED Course And Treatment - Laboratory Results Result Diagrams: 08/25/18 23:55 08/25/18 23:55 ECG: Interpreted By Me, Viewed By Me ECG Rhythm: Sinus Rhythm (62), Nonspecific Changes O2 Sat by Pulse Oximetry: 100 (Room air) Pulse Ox Interpretation: Normal - Radiology CXR: Interpreted by Me, Viewed By Me CXR Interpretation: No: Infiltrates, Fracture, Pnemothorax Progress Note: CT head, EKG, blood work, CXR, and urinalysis ordered. Aspirin administered. Disposition Discussed With Dr.: Luis Maguire Comment: accepted the pt on his service and took over the care at 1:44 AM Doctor Will See Patient In The: Hospital Counseled Patient/Family Regarding: Studies Performed, Diagnosis - Disposition Disposition: HOSPITALIZED Disposition Time: 23:40 Condition: FAIR Forms: [facility] (Spanish) - POA Present On Arrival: None - Clinical Impression Clinical Impression: Chest pain - Scribe Statement The provider has reviewed the documentation as recorded by the Scribe Dwight Presley All medical record entries made by the Scribe were at my direction and personally dictated by me. I have reviewed the chart and agree that the record accurately reflects my personal performance of the history, physical exam, medical decision making, and the department course for this patient. I have also personally directed, reviewed, and agree with the discharge instructions and disposition. Decision To Admit - Pt Status Changed To: Hospital Disposition Of: Inpatient - Admit Certification Admit to Inpatient:: After my assessment, the patient will require hospitalization for at least two midnights. This is because of the severity of symptoms shown, intensity of services needed, and/or the medical risk in this patient being treated as an outpatient. - InPatient: Physician Admission Certification: I certify that this patient requires 2 or more midnights of care for the following reason:: After my assessment, the patient will require hospitalization for at least two midnights. This is bec ause of the severity of symptoms shown, intensity of services needed, and/or the medical risk in this patient being treated as an outpatient. - . Bed Request Type: Telemetry Admitting Physician: Luis Maguire Patient Diagnosis: Chest pain
[2018-08-26 00:03] LABS: URINE BILIRUBIN NEGATIVE (NEGATIVE); URINE CLARITY Clear (Clear); URINE COLOR Straw (YELLOW); URINE GLUCOSE (UA) NORMAL (Normal); URINE LEUKOCYTE ESTERASE NEG Leu/uL (Negative); URINE PROTEIN NEGATIVE (NEGATIVE); URINE UROBILINOGEN NORMAL mg/dL (0.2-1.0)
[2018-08-26 00:16] LABS: ALB/GLOB RATIO 1.7 (1.0-2.1); ALBUMIN 4.8 g/dL (3.5-5.0); ALT/SGPT 51 U/L (9-52); AST/SGOT 44 U/L (14-36); BASO % 0.7 % (0.0-2.0); BLOOD UREA NITROGEN 8 mg/dL (7-17); CALCIUM 9.1 mg/dl (8.6-10.4); EOS # 0.1 K/uL (0.0-0.7); EOS % 1.6 % (0.0-4.0); GFR NON-AFRICAN AMERICAN > 60; HEMOGLOBIN 13.3 g/dL (11.0-16.0); LIPASE 55 U/L (23-300); LYMPH # 1.8 K/uL (1.0-4.3); LYMPH % 34.9 % (20.0-40.0); MEAN CELL VOLUME 86.2 fL (81.0-99.0); MEAN CORPUSCULAR HEMOGLOBIN 27.4 pg (27.0-31.0); MEAN CORPUSCULAR HGB CONC 31.7 g/dL (33.0-37.0); MEAN PLATELET VOLUME 8.1 fL (7.2-11.7); MONO # 0.3 K/uL (0.0-0.8); NEUT # 2.9 K/uL (1.8-7.0); NEUT % 56.8 % (50.0-75.0); RBC 4.85 Mil/uL (3.80-5.20); RED CELL DISTRIBUTION WIDTH 14.6 % (11.5-14.5); WHITE BLOOD COUNT 5.1 K/uL (4.8-10.8)
[2018-08-26 00:18] LABS: URINE BLOOD NEGATIVE (NEGATIVE)
[2018-08-26 00:28] LABS: B-TYPE NATRIURETIC PEPTIDE 150 pg/mL (0-900)
[2018-08-26 01:43] VITALS: RESP 18
[2018-08-26 01:46] VITALS: O2SAT 100
[2018-08-26 02:40] VITALS: BP 134/89; PULSE 62; TEMP 98.4
--- NOTE | 2018-08-26 08:26 | CT ---
Date of service: 08/26/2018 PROCEDURE: CT HEAD WITHOUT CONTRAST. HISTORY: headache COMPARISON: 10/12/2016 TECHNIQUE: Axial computed tomography images were obtained through the head/brain without intravenous contrast. Radiation dose: Total exam DLP = 1044.77 mGy-cm. This CT exam was performed using one or more of the following dose reduction techniques: Automated exposure control, adjustment of the mA and/or kV according to patient size, and/or use of iterative reconstruction technique. FINDINGS: HEMORRHAGE: No intracranial hemorrhage. BRAIN: No mass effect or edema. Scattered focal lucencies in the subcortical and periventricular white matter suggestive for chronic microvascular ischemic change. Punctate left basal ganglia calcification. Diffuse generalized parenchymal atrophy. VENTRICLES: Unremarkable. No hydrocephalus. CALVARIUM: Unremarkable. PARANASAL SINUSES: Unremarkable as visualized. No significant inflammatory changes. MASTOID AIR CELLS: Unremarkable as visualized. No inflammatory changes. OTHER FINDINGS: None. IMPRESSION: No acute intracranial abnormality. Chronic microvascular ischemic change. Diffuse generalized parenchymal atrophy. If symptoms persists, consider correlation with MRI. A preliminary report was generated at 1:39 a.m. on 08/26/[address] Jeremiah Thomson from [facility].
--- NOTE | 2018-08-26 12:47 | CARD ---
APPROVED REPORT Date of service: 08/25/2018 EKG Measurement Heart [id number] ND 122P7 [id number] <Conclusion> Normal sinus rhythm ST & T wave abnormality, consider anterolateral ischemia Abnormal ECG
--- NOTE | 2018-08-26 14:22 | RAD ---
Date of service: 08/25/2018 PROCEDURE: CHEST RADIOGRAPH, 1 VIEW HISTORY: chest pain COMPARISON: 10/12/2016 FINDINGS: LUNGS: Clear. PLEURA: No pneumothorax or pleural fluid seen. CARDIOVASCULAR: There is minimal presence of aortic atherosclerotic calcification on x-ray. Probable minimal cardiomegaly No significant appearing pulmonary venous congestion. OSSEOUS STRUCTURES: No significant abnormalities. VISUALIZED UPPER ABDOMEN: Normal. OTHER FINDINGS: None. IMPRESSION: No acute pulmonary pathology noted. Minimal cardiomegaly suspect.
== END 2018-08-26 02:40 | disposition left against medical advice (07) ==
LOC: C.ER 22:42 → UNDOADMIN 08-26 01:44 → C.9E 08-26 01:44 → UNDODISIN 08-26 02:28
DX: R07.9 Chest pain, unspecified (principal); I10 Essential (primary) hypertension